=== PATIENT | male | born 1980 | race Caucasian/White ===

== ENCOUNTER → 2017-01-04 | Outpatient (CLI) | payer OTHER ==
--- NOTE | 2017-01-04 14:55 | XR ---
EXAMINATION TYPE: XR cervical spine comp DATE OF EXAM: 01/04/2017 2:45 PM COMPARISON: NONE HISTORY: 36-year-old male with cervical pain after carrying a mattress, strain. TECHNIQUE: 6 views FINDINGS: No significant bony spondylotic neuroforaminal narrowing on either side. Some reversal of the normal cervical lordosis is noted. No predental space widening or prevertebral soft tissue swelling. Alignme nt is maintained. Normal odontoid view. IMPRESSION: 1. Some reversal of the normal cervical lordosis could be positional or due to muscle spasm. 2. No malalignment or acute osseous abnormality seen.
== END | disposition home or self-care (01) ==
LOC: RADXRMAIN 14:18
PROVIDERS: ATTEND Emergency Medicine
DX: S13.4XXA Sprain of ligaments of cervical spine, initial encounter (principal)
CPT/HCPCS: 72050

== ENCOUNTER → 2021-08-11 | Outpatient (CLI) | payer OTHER ==
--- NOTE | 2021-08-11 12:26 | XR ---
EXAMINATION TYPE: XR tibia fibula LT, 2 views DATE OF EXAM: 08/11/2021 Comparison: None Clinical History: 41-year-old male with left calf pain Findings: The ankle articulations appear grossly intact. No acute fracture. No periostitis or osteolysis. Impression: No acute osseous abnormality seen. If symptoms persist, consider MRI.
--- NOTE | 2021-08-11 12:35 | US ---
EXAMINATION TYPE: US venous doppler duplex LE LT DATE OF EXAM: 08/11/2021 12:30 PM COMPARISON: NONE CLINICAL HISTORY: 41-year-old male S86.112A STRAIN OF OTHER MUSCLES AND TENDONS. Calf pain SIDE PERFORMED: Left TECHNIQUE: The lower extremity deep venous system is examined utilizing real time linear array sonog terence with graded compression, doppler sonography and color-flow sonography. FINDINGS: VESSELS IMAGED: Common Femoral Vein Deep Femoral Vein Greater Saphenous Vein * Femoral Vein Popliteal Vein Small Saphenous Vein * Proximal Calf Veins (* superficial vessels) Left Leg: Negative for DVT IMPRESSION: No evidence for DVT within the left lower extremity imaged from the groin to the upper calf.
== END | disposition home or self-care (01) ==
LOC: RADUSWWP 11:46
PROVIDERS: ATTEND Emergency Medicine
DX: S86.112A Strain of other muscle(s) and tendon(s) of posterior muscle group at lower leg level, left leg, initial encounter (principal); R60.0 Localized edema; M79.662 Pain in left lower leg; X58.XXXA Exposure to other specified factors, initial encounter

== ENCOUNTER → 2021-08-11 | Outpatient (CLI) | payer OTHER ==
--- NOTE | 2021-08-11 10:23 | CT ---
EXAMINATION TYPE: CT soft tissue neck w con DATE OF EXAM: 08/11/2021 COMPARISON: None HISTORY: 41-year-old male R2 2.1. Swelling, mass, lump in neck. Submandibular. TECHNIQUE: Contiguous axial scanning of the soft tissues of the neck performed with IV Contrast, alex ent injected with 100 ml mL of Isovue 300. Coronal/sagittal reconstructions performed. CT DLP: 828 mGycm Automated exposure control for dose reduction was used. FINDINGS: Rightward nasal septal deviation. Mucosal thickening and a large 2.3 cm mucosal retention cyst floor of the left maxillary sinus. Smaller 1 cm polyp or mucosal retention cyst floor of the right maxillar y sinus. Mastoid air cells are well pneumatized. Nasopharynx appears clear. Mild to moderate bilateral lingual tonsillar hypertrophy. Epiglottis and prevertebral soft tissues are satisfactory. Glottic and subglottic structures as well as the tracheal column and visualized upper lungs are clear . Possible mixed solid and cystic 2.6 cm nodule in the thyroid isthmus, coronal image 48 and axial imag e 64. 1.2 cm hypodense nodule right lobe of the thyroid gland. Further thyroid ultrasound evaluation recommended. The submandibular and parotid glands are mildly atrophic. There is left-sided submandibular lymphadenopathy measuring up to 2.5 x 1.5 cm. Two mildly enlarged right-sided submandibular space lymph nodes measure up to 1.4 and 1.3 cm. Otherwise, no enlarged lymph nodes in the mid or lower neck. No osseous destructive process. IMPRESSION: 1. LEFT-SIDED SUBMANDIBULAR SPACE LYMPHADENOPATHY MEASURING UP TO 2.5 CM AND TWO MILDLY ENLARGED LYMP H NODES IN THE RIGHT SUBMANDIBULAR SPACE MEASURING 1.4 AND 1.3 CM. IF THESE ARE SUSPECTED TO BE REACT REFUGIO/POST INFLAMMATORY, CLINICAL FOLLOW-UP RECOMMENDED TO ENSURE GRADUAL INVOLUTION. IF SUSPICIOUS CLI NICAL FEATURES, TISSUE SAMPLING CAN BE PERFORMED. 2. POSSIBLE 2.6 CM ISTHMIC NODULE AND 1.2 CM RIGHT THYROID LOBE NODULE. FURTHER THYROID ULTRASOUND EV ALUATION RECOMMENDED TO BETTER CHARACTERIZE AND DETERMINE THE NEED FOR FOLLOW-UP VERSUS FNA. 3. BILATERAL LINGUAL TONSILLAR HYPERTROPHY.
== END | disposition home or self-care (01) ==
LOC: RADCTMAIN 09:05
PROVIDERS: ATTEND Otolaryngology
DX: R59.1 Generalized enlarged lymph nodes (principal)
CPT/HCPCS: 70491; Q9967

== ENCOUNTER → 2021-08-19 | Outpatient (CLI) | payer OTHER ==
--- NOTE | 2021-08-19 15:56 | US ---
EXAMINATION TYPE: US thyroid st tissue head/neck DATE OF EXAM: 08/19/2021 COMPARISON: CT 08-11-2021 CLINICAL HISTORY: 41-year-old male E04.1 Thyroid nodule. TECHNIQUE: Multiple sonographic images of the thyroid gland are obtained. FINDINGS: GLAND SIZE: Right Lobe: 4.7x2.1x2.1 cm Overall Parenchyma: homogenous Left Lobe: 4.7x1.5x2.1 cm Overall Parenchyma: homogeneous Isthmus Thickness: 0.8 cm NODULES RIGHT: # of nodules measured on right: 1 1. 2.0 X 1.3 x 1.3 cm, upper mid, mixed cystic and solid, isoechoic nodule, which is wider than riki l, with smooth margins with punctate echogenic foci. LEFT: # of nodules measured on left: 2 1. 1.2 X 0.9 x 0.6 cm, upper mid, , hypoechoic nodule, which is wider than tall, with smooth margin s, without echogenic foci. 2. 0.8 X 0.8 x 0.8 cm, mid mid, cystic with internal septations, anechoic nodule, which is wider t gonzalez tall, with smooth margins, without echogenic foci. ISTHMUS: # of nodules measured in the isthmus: 2 1. 1.5 X 1.8 x 1.4 cm mixed cystic and solid, isoechoic nodule, which is wider than tall, with smoo th margins, without echogenic foci. 2. 1.8 X 1.7 x 1.0 cm, heterogeneous hypoechoic nodule, which is wider than tall, with smooth armando ns, without echogenic foci. Bilateral neck scanned, no evidence of lymphadenopathy. Patient feels lymph node Right neck level 1B measuring1.8x 2.4x0.6cm with decreased cortex Suspicious lymph node seen Left neck level 4 measuring 1.6x1.1x0.5cm with decreased cortex IMPRESSION: 1. A prominent lymph node on either side of the neck. Particularly in the right submandibular space, this is enlarged at 1.8 cm versus 1.4 cm, measured on prior CT. The left submandibular space lymphade nopathy seen on the CT is not identified on the current exam. These may be reactive/post inflammatory . Clinical surveillance recommended. If persistent enlargement or suspicious clinical features, tissu e sampling can be considered. 2. Multinodular thyroid gland. Given punctate calcifications within the mixed 2.0 cm right-sided nodu le, consider FNA. 3. FNA can also be considered for the 1.8 cm solid nodule in the thyroid isthmus. 4. The remaining nodules should be followed.
== END | disposition home or self-care (01) ==
LOC: RADUSWWP 12:31
PROVIDERS: ATTEND Otolaryngology
DX: E04.2 Nontoxic multinodular goiter (principal)
CPT/HCPCS: 76536

== ENCOUNTER 2021-08-26 12:29 | Day surgery (SDC) | payer OTHER ==
[2021-08-26 13:22] VITALS: RESP 16; TEMP 98
--- NOTE | 2021-08-26 14:45 | US ---
EXAMINATION TYPE: US FNA first lesion, US FNA thyroid each add lesion, US FNA thyroid first lesion DATE OF EXAM: 08/26/2021 COMPARISON: CT 08/11/2021, ultrasound 08/19/2021 HISTORY: Thyroid nodules, neck adenopathy.Maximal barrier technique was utilized. After informed con sent, skin overlying the submandibular adenopathy was localized with ultrasound and the overlying ski n prepped and draped. Ultrasound was utilized using sterile technique. Lidocaine was used for local a nesthesia. Four passes with a 25-gauge needle were made into the hypoechoic submandibular node and a spirated specimen was submitted to cytology. Using similar technique, aspiration was obtained of the mixed solid cystic thyroid nodule on the right. 4 passes were made under direct ultrasound guidance and aspirated specimen submitted for cytology analysis. Using similar technique the midline mixed giacomo id cystic thyroid nodule was aspirated at the level of the isthmus, 4 passes with a 25 inch needle we re performed and aspirated specimen submitted to cytology. Following the procedure hemostasis achieve d. No immediate complication. The patient discharged in stable condition. IMPRESSION: STATUS POST ULTRASOUND GUIDED FINE NEEDLE ASPIRATION OF LEFT SUBMANDIBULAR ADENOPATHY, TH YROID NODULES, PATHOLOGY IS PENDING. THIS PROCEDURE WAS PERFORMED BY THE UNDERSIGNED.
[2021-08-26 15:13] VITALS: BP 133/89; PULSE 84
== END 2021-08-26 14:50 | disposition home or self-care (01) ==
LOC: RADPROMAIN 12:29
PROVIDERS: ATTEND Otolaryngology
DX: E04.1 Nontoxic single thyroid nodule (principal)
CPT/HCPCS: 10005; 10006; 88173; 88305

== ENCOUNTER → 2025-02-14 | Outpatient (CLI) | payer OTHER ==
--- NOTE | 2025-02-14 08:58 | CT ---
EXAMINATION TYPE: CT brain wo con DATE OF EXAM: 02/14/2025 8:32 AM COMPARISON: None. CLINICAL INDICATION: Male, 45 years old with history of G43.709, Chronic headaches TECHNIQUE: Brain: Axial CT images of the brain were obtained with coronal and sagittal reformats created and rev iewed. Contrast used: None. Oral contrast used: None. CT DLP: 1144 mGycm, Automated exposure control for dose reduction was used. FINDINGS: Brain: Extra-axial spaces: No abnormal extra-axial fluid collections. Ventricular system: Within normal limits Cerebral parenchyma: No acute intraparenchymal hemorrhage or mass effect. The buenrostro-white junction is well differentiated. 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 Cerebellum: Unremarkable. Mass effect: No evidence of midline shift. Intracranial vasculature: unremarkable Soft tissues: Normal. Calvarium/osseous structures: No depressed skull fracture. Paranasal sinuses and mastoid air cells: Mild scattered paranasal sinus disease. 17 mm retention cyst in the left maxillary sinus.. Visualized orbits: Orbital contents are intact. IMPRESSION: 1. No acute intracranial process. 2. 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 [facility], , 02/14/2025 8:56 AM
== END | disposition home or self-care (01) ==
LOC: RADCTMAIN 08:08
PROVIDERS: ATTEND Family Medicine
DX: G43.709 Chronic migraine without aura, not intractable, without status migrainosus (principal)
CPT/HCPCS: 70450

== ENCOUNTER → 2025-03-14 | Outpatient (CLI) | payer OTHER ==
[2025-03-14 15:25] VITALS: BP 135/90; PULSE 82; RESP 16; TEMP 97.6
--- NOTE | 2025-03-14 15:38 | P.SLEEP ---
History of Present Illness DATE: 03/14/2025 CONSULTATION/NEW PATIENT EVALUATION HISTORY OF PRESENT ILLNESS/SLEEP-WAKE EVALUATION: 45-year-old gentleman had b een evaluated in the sleep center for possible obstructive sleep apnea hypopnea syndrome. SLEEP SCHEDULE: Usually sleep schedule from 10 PM to 7 AM. FALLING ASLEEP: No significant problems with falling asleep. DURING SLEEP: Patient snores and wakes up from sleep once with nocturia. No history of hypnogogical hallucinations, sleep paralysis, or cataplexy. DURING THE DAY/WAKE STATE: Patient feels sleepiness during the day. [place] sleepiness scale is increased to 14. Patient takes 1 nap. PAST MEDICAL HISTORY: Hypertension, headaches, hyperlipidemia. PAST SURGICAL HISTORY: Tonsillectomy. MEDICATIONS: Please see below. SOCIAL HISTORY: Please see below. FAMILY HISTORY: Please see below. REVIEW OF SYSTEMS: During, sleepiness during the day. No fevers. No double vision. No recent chest pain. No shortness of breath. No abdominal pain. No bleeding episodes. No blood in urine. No seizure episodes. PHYSICAL EXAMINATION: GENERAL: A pleasant patient without any distress. VITAL SIGNS: Please see below, weight 199 pounds, BMI 28.8. HEENT: PERRLA, EOMI. Evaluation of oropharynx showed tongue protrudes midline, low position of soft palate Mallampati 23. NECK: Supple. No JVD. Thyroid is not palpable. 16-1/4 inches in circumference. LUNGS: Clear to percussion and to auscultation. Good air exchange. No wheezing or rhonchi. HEART: S1, S2 regular. No murmurs, gallops or rubs. ABDOMEN: Soft and nontender. Bowel sounds are present. No organomegaly appreciated. EXTREMITIES: No clubbing or cyanosis. THORACIC MEDICINE SPECIALIST: Awake, alert, and oriented x3. Cranial nerves 2 to 7 intact. There is no fasciculation or atrophy noted. No focal deficits observed. ASSESSMENT: 1. Snoring, awakenings from sleep, low position of soft palate, sleepiness during the day with [place] Sleepiness Scale increased to 14. Obstructive sleep apnea hypopnea syndrome. 2. Hypertension. 3. Headaches. 4. Hyperlipidemia. 5. Status post tonsillectomy. PLAN: 1. Polysomnography for evaluation of patient's breathing during sleep. 2. Following plan after reading sleep study. 3. Preferable position during sleep on the side. 4. No driving if patient feels any sleepiness. Patient is aware of civil and criminal liability for unsafe driving. 5. Sleep hygiene with regular sleep time for at least 7.5-8 hours. 6. Watching weight. Thank you very much for referring this patient for consultation. Sincerely, Gavin Roy MD, PhD, FAASM. Diplomat of [employer], Sleep Medicine Board by [employer] [facility] Past Medical History Past Medical History: GERD/Reflux, Hypertension Additional Past Medical History / Comment(s): migraines, enlarged lymph nodes in neck History of Any Multi-Drug Resistant Organisms: None Reported Past Surgical History: Tonsillectomy Past Anesthesia/Blood Transfusion Reactions: No Reported Reaction Past Psychological History: No Psychological Hx Reported Smoking Status: Never smoker Past Alcohol Use History: Occasional Past Drug Use History: None Reported - Past Family History Father Family Medical History: Hypertension Mother Family Medical History: Cancer Additional Family Medical History / Comment(s): - breast cancer Medications and Allergies Home Medications Medication Instructions Recorded Confirmed Type [id number] [id number] 1 each PO DAILY PRN 08/19/21 08/26/21 History [Excedrin] Naproxen Sodium [Aleve] 220 mg PO ONCE PRN 08/19/21 08/26/21 History Omeprazole [PriLOSEC] 40 mg PO DAILY 08/19/21 03/14/25 History Propranolol HCl [Inderal Xl] 120 mg PO DAILY 08/19/21 03/14/25 History Acetaminophen Tab [Tylenol Tab] 1,000 mg PO Q6HR PRN 08/26/21 08/26/21 History Amitriptyline HCl 25 mg PO BID 03/14/25 03/14/25 History Atorvastatin [Lipitor] 20 mg PO HS 03/14/25 03/14/25 History Allergies Allergy/AdvReac Type Severity Reaction Status Date / Time No Known Allergies Allergy Verified 08/26/21 13:25 Physical Exam Vitals: Vital Signs Temp Pulse Resp BP Pulse Ox 03/14/25 15:22 97.6 F 82 16 135/90 97 Intake and Output 03/14/25 03/14/25 03/14/25 06:59 14:59 22:59 Other: Weight 90.265 kg Sleep Note - Sleep Data ESS Total: 14 - Sleep Note Sleep Note: Temperature: 97.6 F Pulse Rate: 82 Respiratory Rate: 16 Blood Pressure: 135/90 SpO2: 97 Height: 5 ft 10 in Weight: 90.265 kg BMI: Neck Circumference: 16.2
== END ==
LOC: 3 N SLEEP 15:04
PROVIDERS: ATTEND Internal Medicine
DX: G47.33 Obstructive sleep apnea (adult) (pediatric) (principal); I10 Essential (primary) hypertension; R51.9 Headache, unspecified; E78.5 Hyperlipidemia, unspecified; Z90.89 Acquired absence of other organs
CPT/HCPCS: 99211

== ENCOUNTER 2025-04-22 19:10 | Outpatient (CLI) | payer OTHER ==
--- NOTE | 2025-04-24 15:51 | P.PCN ---
Description of Procedure: POLYSOMNOGRAPHY REPORT PROCEDURE(S)/DATE(S): Polysomnography 04/22/2025 CLINICAL: Patient has been seen in the sleep center for evaluation of obstructive sleep apnea-hypopnea syndrome. Please see my consultation. Sleep study has been done for evaluation of patient breathing during the sleep. PROCEDURE: The standard montage for clinical polysomnography included the electroencephalogram, the electrooculogram, the mentalis surface electromyography and Lead II cardiography. The respiratory battery consisted of measurements of nasal/buccal air flow, pressure transducer measurements from nose, thoracic and/or abdominal effort and intercostal surface electromyography. Video monitoring has been done to check for any parasomnia events. Nocturnal oxyhemoglobin saturations were obtained by finger oximetry. Step-chavira titration with positive airway pressure was utilized to control the respiratory events, if necessary. RESULTS: During the diagnostic sleep study sleep efficiency was normal 89.4%. Latency to sleep onset was normal at 12.0 min. Sleep architecture showed stage NI was short 3.8%, Delta sleep was absent 0%, REM sleep was short 10.2%. Respiratory channel showed 0 obstructive apneas, 0 mixed apneas, 0 central apneas, 16 hypopneas with lowest oxygen level 86%. Total apnea hypopnea index was 2.9. Heart rate was in the range between 61 and 70, average 65. EMG showed 0.7 periodic limb movements per hour with 0.2 micro-arousals per hour. IMPRESSIONS: 1. No significant respiratory abnormalities have been documented during the sleep study. 2. No significant periodic limb movements have been documented. 3. Patient presents with symptoms of significant excessive daytime sleepiness by [place] Sleepiness Scale 14. Please see other impressions from consultation PLAN: 1. I will see patient for follow-up visit to explain results of the test and to discuss plan. We may consider multiple sleep latency test if patient will continue to have symptoms of excessive daytime sleepiness. 2. Sleep hygiene with regular time in bed for at least 7-1/2 hours. 3. No driving if feeling sleepiness. Thank you very much for allowing me to participate in the management of your patient. Sincerely, Gavin Roy MD, PhD, FAASM. Diplomat of [place] [employer], Sleep Medicine Board by [place] [employer] Nursing Technician [facility] cc: Saad Salmon MD
== END 2025-04-23 04:15 | disposition home or self-care (01) ==
LOC: 3 N SLEEP 19:10
PROVIDERS: ATTEND Internal Medicine
DX: G47.33 Obstructive sleep apnea (adult) (pediatric) (principal)
CPT/HCPCS: 95810